=== PATIENT | female | born 1995 | race Caucasian/White ===

== ENCOUNTER 2019-03-10 18:08 | Emergency (ER) | payer OTHER ==
[2019-03-10 18:15] VITALS: BP 150/75
[2019-03-10] MEDS ORDERED: FLUO-176 PO (18:22)
[2019-03-10] MEDS ORDERED: NORE-25 PO (18:22)
--- NOTE | 2019-03-10 18:22 | ER Report ---
History and Physical Time Seen By MD: 18:22 Hx. of Stated Complaint: PATIENT REPORTS SOME BLEEDING FROM RECTUM. SHE REPORTS BLEEDING AFTER A BOWEL MOVEMENT AND ALSO NOTICED BLOOD IN HER UNDERWEAR. HPI/ROS CHIEF COMPLAINT: Rectal bleeding HISTORY OF PRESENT ILLNESS: 23-year-old female presents ambulatory to the ER complaining of rectal bleeding for several days. She does have a distant history of mild hemorrhoids. It resolved spontaneously without evaluation or treatment. Patient denies recent change in her bowel habits such as passing a large stool or constipation. Patient denies family history of colon cancer or IBD. Patient notes one episode of dizziness. She's never been diaphoretic or syncopal. Patient states she just finished her menstrual cycle. Patient did have one episode of vomiting. She states she feels like she is coming down with flu symptoms. REVIEW OF SYSTEMS: Respiratory: No cough, no dyspnea. Cardiovascular: No chest pain, no palpitations. Gastrointestinal: No vomiting, no abdominal pain. Musculoskeletal: No back pain. Allergies: Coded Allergies: No Known Drug Allergies (Unverified , 03/10/19) Home Meds Active Scripts Ondansetron 4 Mg Odt (ONDANSETRON 4 MG ODT) 4 Mg Tab.rapdis, 4 MG PO Q6H PRN for NAUSEA/VOMITING, #12 TAB Prov:LORETTA DIXON DO 03/10/19 Hydrocortisone Acetate (Hemmorex-Hc) 25 Mg Supp.rect, 1 SUPP.RECT SD BID for treatment of hemorrhoids, #20 Prov:LORETTA DIXON DO 03/10/19 Reported Medications Noreth A-Et Estra/Fe Fumarate (JUNEL FE 1.5 MG-30 MCG TABLET) 1 Each Tablet, 1 EACH PO QDAY 03/10/19 Fluoxetine Hcl (FLUOXETINE HCL) 10 Mg Capsule, 10 MG PO QDAY, CAPSULE 03/10/19 Reviewed Nurses Notes: Yes Old Medical Records Reviewed: Yes Hx Substance Use Disorder: No Hx Alcohol Use: Yes (OCC.) Constitutional Vital Sign - Last 24 Hours 03/10/19 18:15 Temp 99.3 Pulse 119 Resp 20 B/P (MAP) 150/75 Pulse Ox 95 O2 Delivery Room Air Physical Exam General Appearance: The patient is alert, has no immediate need for airway protection and no current signs of toxicity. Vital signs stable, afebrile, pulse ox normal HEENT: Pupils equal and round no injection. Oropharynx without redness or exudate, mucous. Membranes are moist Respiratory: Chest is non tender, lungs are clear to auscultation. Cardiac: regular rate and rhythm Gastrointestinal: Abdomen is soft and non tender, no masses, bowel sounds normal Rectal exam: There was one small external friable hemorrhoid noted. Anoscopy was performed. The anoscope was inserted to a proximally 6 inches. It was slowly removed. There were notable internal hemorrhoids swollen and friable.. Musculoskeletal: Neck: Neck is supple and non tender. No lymphadenopathy Extremities have full range of motion and are non tender. Skin: No rashes or lesions. DIFFERENTIAL DIAGNOSIS: After history and physical exam differential diagnosis was considered for lower GI bleeding including but not limited to diverticulosis, tumor, AVM, hemorrhoid and anal fissure. Medical Decision Making Data Points Result Diagram: 03/10/192 03/10/19 1832 Laboratory Hematology Test 03/10/19 18:32 Red Blood Count 4.62 M/uL (4.17-5.56) Mean Corpuscular Volume 89.1 fL (80.0-96.0) Mean Corpuscular Hemoglobin 30.5 pg (26.0-33.0) Mean Corpuscular Hemoglobin Concent 34.2 g/dL (32.0-36.0) Red Cell Distribution Width 12.3 % (11.5-14.5) Mean Platelet Volume 8.2 fL (7.2-11.1) Neutrophils (%) (Auto) 92.1 % (39.4-72.5) Lymphocytes (%) (Auto) 4.7 % (17.6-49.6) Monocytes (%) (Auto) 3.0 % (4.1-12.4) Eosinophils (%) (Auto) 0.0 % (0.4-6.7) Basophils (%) (Auto) 0.2 % (0.3-1.4) Nucleated RBC Relative Count (auto) 0.2 /100WBC Neutrophils # (Auto) 13.4 K/uL (2.0-7.4) Lymphocytes # (Auto) 0.7 K/uL (1.3-3.6) Monocytes # (Auto) 0.4 K/uL (0.3-1.0) Eosinophils # (Auto) 0.0 K/uL (0.0-0.5) Basophils # (Auto) 0.0 K/uL (0.0-0.1) Nucleated RBC Absolute Count (auto) 0.03 K/uL Prothrombin Time 14.7 seconds (12.0-14.4) Prothromb Time International Ratio 1.14 Activated Partial Thromboplast Time 26 seconds (23-35) Sodium Level 139 mmol/L (137-145) Potassium Level 3.5 mmol/L (3.5-5.0) Chloride Level 104 mmol/L (98-107) Carbon Dioxide Level 22 mmol/L (22-31) Blood Urea Nitrogen 12 mg/dl (7-18) Creatinine 0.60 mg/dl (0.52-1.04) Glomerular Filtration Rate Calc > 60.0 Random Glucose 110 mg/dl (75-110) Calcium Level 9.5 mg/dl (8.4-10.2) Total Bilirubin 0.4 mg/dl (0.2-1.3) Aspartate Amino Transf (AST/SGOT) 30 U/L (0-35) Alanine Aminotransferase (ALT/SGPT) 41 U/L (0-56) Alkaline Phosphatase 67 U/L (0-126) Total Protein 7.2 g/dl (6.3-8.2) Albumin 4.3 g/dl (3.5-5.0) Human Chorionic Gonadotropin, Qual Negative (NEGATIVE) Chemistry Test 03/10/19 18:32 White Blood Count 14.6 k/uL (4.5-11.0) Red Blood Count 4.62 M/uL (4.17-5.56) Hemoglobin 14.1 g/dL (12.0-16.0) Hematocrit 41.2 % (34.0-47.0) Mean Corpuscular Volume 89.1 fL (80.0-96.0) Mean Corpuscular Hemoglobin 30.5 pg (26.0-33.0) Mean Corpuscular Hemoglobin Concent 34.2 g/dL (32.0-36.0) Red Cell Distribution Width 12.3 % (11.5-14.5) Platelet Count 250 K/uL (150-450) Mean Platelet Volume 8.2 fL (7.2-11.1) Neutrophils (%) (Auto) 92.1 % (39.4-72.5) Lymphocytes (%) (Auto) 4.7 % (17.6-49.6) Monocytes (%) (Auto) 3.0 % (4.1-12.4) Eosinophils (%) (Auto) 0.0 % (0.4-6.7) Basophils (%) (Auto) 0.2 % (0.3-1.4) Nucleated RBC Relative Count (auto) 0.2 /100WBC Neutrophils # (Auto) 13.4 K/uL (2.0-7.4) Lymphocytes # (Auto) 0.7 K/uL (1.3-3.6) Monocytes # (Auto) 0.4 K/uL (0.3-1.0) Eosinophils # (Auto) 0.0 K/uL (0.0-0.5) Basophils # (Auto) 0.0 K/uL (0.0-0.1) Nucleated RBC Absolute Count (auto) 0.03 K/uL Prothrombin Time 14.7 seconds (12.0-14.4) Prothromb Time International Ratio 1.14 Activated Partial Thromboplast Time 26 seconds (23-35) Glomerular Filtration Rate Calc > 60.0 Calcium Level 9.5 mg/dl (8.4-10.2) Total Bilirubin 0.4 mg/dl (0.2-1.3) Aspartate Amino Transf (AST/SGOT) 30 U/L (0-35) Alanine Aminotransferase (ALT/SGPT) 41 U/L (0-56) Alkaline Phosphatase 67 U/L (0-126) Total Protein 7.2 g/dl (6.3-8.2) Albumin 4.3 g/dl (3.5-5.0) Human Chorionic Gonadotropin, Qual Negative (NEGATIVE) Coagulation Test 03/10/19 18:32 Prothrombin Time 14.7 seconds Prothromb Time International Ratio 1.14 Activated Partial Thromboplast Time 26 seconds ED Course/Re-evaluation ED Course Patient was admitted to an examination room. H&P was done. The differential diagnoses was considered. Patient with abdominal cramps, vomiting times one. She's been having rectal bleeding with large bowel movements over the last 3 days. She notes more blood in the toilet bowl. Patient states previous history of mild hemorrhoids. Diagnostic studies were ordered. Patient had anoscopy performed. There were numerous friable internal hemorrhoids as well as 1 external hemorrhoid noted. Patient's advised hemorrhoidal suppositories twice a day. Stool softeners. She's given Zofran for her vomiting. She is advised a clear liquid diet for 24-48 hours. Advance as tolerated. Decision to Disposition Date: Mar 10, 2019 Decision to Disposition Time: 19:05 Depart Departure Latest Vital Signs Vital Signs Date Time Temp Pulse Resp B/P (MAP) Pulse Ox O2 Delivery O2 Flow Rate FiO2 03/10/19 18:15 99.3 119 20 150/75 95 Room Air Impression: Primary Impression: Hemorrhoids Additional Impression: Gastroenteritis Condition: Improved Disposition: HOME OR SELF-CARE New Scripts Ondansetron 4 Mg Odt (ONDANSETRON 4 MG ODT) 4 Mg Tab.rapdis 4 MG PO Q6H PRN for NAUSEA/VOMITING, #12 TAB Prov: LORETTA DIXON DO 03/10/19 Hydrocortisone Acetate (Hemmorex-Hc) 25 Mg Supp.rect 1 SUPP.RECT SD BID for treatment of hemorrhoids, #20 Prov: LORETTA DIXON DO 03/10/19 Patient Instructions: Clear Liquid Diet (ED), Hemorrhoids (ED) Additional Instructions: Follow clear liquid diet for 24-48 hours Use Tylenol and ibuprofen as needed for pain relief Use Zofran/advance to try to control any nausea or vomiting as needed You should take a stool softener such as Colace or Doxycin 8 twice daily for the next 2 weeks Use hemorrhoidal rectal suppositories twice daily for 10 days to heal up the inflammation of the hemorrhoids Follow-up with general surgery, if you continue to have rectal bleeding beyond 2 weeks Problem Qualifiers Primary Impression: Hemorrhoids Hemorrhoid type: first degree Qualified Codes: K64.0 - First degree hemorrhoids LORETTA DIXON DO Mar 10, 2019 18:22
[2019-03-10 18:43] LABS: PLATELET COUNT, AUTOMATED 250 K/uL (150-450)
[2019-03-10] MEDS ORDERED: HYDR25SU10 PR (18:46)
[2019-03-10 18:54] LABS: INR 1.14
[2019-03-10] MEDS ORDERED: ONDA4TAB9 PO (19:07)
== END 2019-03-10 19:11 | disposition home or self-care (01) ==
LOC: ER 18:21
DX: K64.0 First degree hemorrhoids (principal); K52.9 Noninfective gastroenteritis and colitis, unspecified
CPT/HCPCS: 36415; 82040; 82247; 82310; 82374; 82435; 82565; 82947; 84075; 84132; 84155; 84295; 84450; 84460; 84520; 84703; 85025; 85610; 85730; 99282